=== PATIENT | male | born 1935 | race Caucasian/White ===

== ENCOUNTER 2021-07-07 08:51 | Emergency (ER) | payer MEDICARE, MEDICAID ==
[~2021-07-07] VITALS: Ht 170 cm; Wt 95.0 kg
--- NOTE | 2021-07-07 09:05 | ED General ---
General Stated Complaint: CHEST PAIN Source of Information: Patient Exam Limitations: No Limitations History of Present Illness Date Seen by Provider: Jul 07, 2021 Time Seen by Provider: 08:55 Initial Comments Patient is an 86-year-old insulin-dependent diabetic male with history of hypertension, CAD and CABG who presents with continuous lower abdominal pain and substernal chest pain starting 12 hours prior to ED arrival. Pain is dull aching low-grade. Patient has not had chest pain since his CABG several years ago. He denies back pain. Reports constipation. No abdominal tenderness. Ports nausea denies vomiting fevers chills sweats. Denies dizziness lightheadedness. No shortness of breath or palpitations. No leg pain or swe lling. No other acute symptoms or complaints.. Timing/Duration: 12 Hours Severity: Moderate Modifying Factors: improves with Other Associated Systoms: Other Allergies and Home Medications Allergies Coded Allergies: Penicillins (Verified Allergy, Unknown, 07/07/21) Patient Home Medication List Home Medication List Reviewed: Yes Review of Systems Review of Systems Constitutional: see HPI EENTM: see HPI Respiratory: see HPI Cardiovascular: see HPI Gastrointestinal: see HPI Genitourinary: see HPI Musculoskeletal: see HPI Skin: see HPI Psychiatric/Neurological: See HPI Hematologic/Lymphatic: See HPI Immunological/Allergic: see HPI All Other Systems Reviewed Negative Unless Noted: Yes Past Lxhyynu-Bqpzmv-Pqnrzm Hx Patient Social History Tobacco Use?: Yes Physical Exam Vital Signs Vital Signs - First Documented 07/07/21 09:11 Temp 36.0 Pulse 107 Resp 18 B/P (MAP) 160/106 (124) Pulse Ox 99 Capillary Refill : Height, Weight, BMI Height: '" Weight: lbs. oz. kg; BMI Method: General Appearance: No Apparent Distress, WD/WN, Anxious Eyes: Bilateral Eye Normal Inspection, Bilateral Eye PERRL, Bilateral Eye EOMI HEENT: PERRL/EOMI, Pharynx Normal, Moist Mucous Membranes Neck: Full Range of Motion, Non Tender Respiratory: Lungs Clear Cardiovascular: Regular Rate, Rhythm, No Murmur, Normal Peripheral Pulses Gastrointestinal: Soft Back: Normal Inspection, No CVA Tenderness Neurologic/Psychiatric: Alert, Oriented x3 Focused Exam Sepsis Stage: Ruled Out Progress/Results/Core Measures Suspected Sepsis SIRS Temperature: Pulse: Respiratory Rate: Laboratory Tests 07/07/21 09:00: White Blood Count 10.0 Blood Pressure / Mean: Laboratory Tests 07/07/21 09:00: Creatinine 0.87, Platelet Count 219, Total Bilirubin 0.7 Results/Orders Lab Results Laboratory Tests Test 07/07/21 09:00 07/07/21 11:15 Range/Units White Blood Count 10.0 4.3-11.0 10^3/uL Red Blood Count 5.15 4.30-5.52 10^6/uL Hemoglobin 16.3 13.3-17.7 g/dL Hematocrit 47 40-54 % Mean Corpuscular Volume 91 80-99 fL Mean Corpuscular Hemoglobin 32 25-34 pg Mean Corpuscular Hemoglobin Concent 35 32-36 g/dL Red Cell Distribution Width 13.1 10.0-14.5 % Platelet Count 219 130-400 10^3/uL Mean Platelet Volume 9.8 9.0-12.2 fL Immature Granulocyte % (Auto) 0 % Neutrophils (%) (Auto) 56 42-75 % Lymphocytes (%) (Auto) 37 12-44 % Monocytes (%) (Auto) 5 0-12 % Eosinophils (%) (Auto) 1 0-10 % Basophils (%) (Auto) 0 0-10 % Neutrophils # (Auto) 5.6 1.8-7.8 10^3/uL Lymphocytes # (Auto) 3.7 1.0-4.0 10^3/uL Monocytes # (Auto) 0.5 0.0-1.0 10^3/uL Eosinophils # (Auto) 0.1 0.0-0.3 10^3/uL Basophils # (Auto) 0.0 0.0-0.1 10^3/uL Immature Granulocyte # (Auto) 0.0 0.0-0.1 10^3/uL D-Dimer 0.69 H 0.00-0.49 UG/ML Sodium Level 140 135-145 MMOL/L Potassium Level 4.0 3.6-5.0 MMOL/L Chloride Level 99 98-107 MMOL/L Carbon Dioxide Level 25 21-32 MMOL/L Anion Gap 16 H 5-14 MMOL/L Blood Urea Nitrogen 13 7-18 MG/DL Creatinine 0.87 0.60-1.30 MG/DL Estimat Glomerular Filtration Rate 84 BUN/Creatinine Ratio 15 Glucose Level 193 H 70-105 MG/DL Calcium Level 9.6 8.5-10.1 MG/DL Corrected Calcium 9.6 8.5-10.1 MG/DL Total Bilirubin 0.7 0.1-1.0 MG/DL Aspartate Amino Transf (AST/SGOT) 19 5-34 U/L Alanine Aminotransferase (ALT/SGPT) 16 0-55 U/L Alkaline Phosphatase 137 H 40-136 U/L Troponin I < 0.30 <0.30 NG/ML Total Protein 7.6 6.4-8.2 GM/DL Albumin 4.0 3.2-4.5 GM/DL My Orders Orders - KRYSTIAN ADHIKARI DO Cbc With Automated Diff (07/07/21 09:00) Comprehensive Metabolic Panel (07/07/21 09:00) Troponin I Fs (07/07/21 09:00) Fibrin Degradation Products (07/07/21 09:00) Chest 1 View Ap/Pa Only (07/07/21 09:00) Ekg Tracing (07/07/21 09:00) Nitroglycerin 0.4 Mg Btl 25's (Nitrostat (07/07/21 09:15) Aspirin Chewable Tablet (Baby Aspirin Ch (07/07/21 09:15) Ct Angio Chest/Abd/Pelv W (07/07/21 09:49) Ondansetron Injection (Zofran Injectio (07/07/21 10:00) Iohexol Injection (Omnipaque 350 Mg/Ml 1 (07/07/21 10:15) Received Contrast (Hold Metformin- Contr (07/07/21 10:15) Ns (Ivpb) (Sodium Chloride 0.9% Ivpb Bag (07/07/21 10:15) Troponin I Fs (07/07/21 11:06) Medications Given in ED Current Medications Medications Dose Ordered Sig/Annalise Route Start Time Stop Time Status Last Admin Dose Admin Aspirin 324 mg ONCE ONCE PO 07/07/21 09:15 07/07/21 09:16 DC 07/07/21 09:14 324 MG Iohexol 150 ml ONCE ONCE IV 07/07/21 10:15 07/07/21 10:16 DC 07/07/21 10:23 125 ML Nitroglycerin 1 TAB Q 5 MIN X 3 NEEDED PRN SL 07/07/21 09:15 07/07/21 09:14 0.4 MG Ondansetron HCl 4 mg ONCE ONCE IVP 07/07/21 10:00 07/07/21 10:01 DC 07/07/21 10:01 4 MG Sodium Chloride 100 ml ONCE ONCE IV 07/07/21 10:15 07/07/21 10:16 DC 07/07/21 10:23 100 ML Vital Signs/I&O 07/07/21 09:11 Temp 36.0 Pulse 107 Resp 18 B/P (MAP) 160/106 (124) Pulse Ox 99 Capillary Refill : Departure Communication (Admissions) Chest x-ray: No acute cardiopulmonary disease. CTA chest abdomen pelvis: Findings constipation, no acute intravascular disease EKG: Sinus tach, rate 110, nonspecific ST-T wave changes. Patient hypertensive with lower abdominal pain without tenderness and substernal chest pain. Both chest and abdominal pain resolved with treatment of nitroglycerin and blood pressure. Blood pressure normalized. No acute ST changes are noted on EKG. Despite 12 hours of chest pain troponin remains negative in the emergency department. CT scan negative for aortic dissection or aneurysm and suggestive of constipation. Recommendations are for discharge home with supportive care watchful waiting and PCP follow-up. Return precautions reviewed. Patient verbalizes understanding agreement discharge instructions prior to departure. Impression Primary Impression: Chest pain Additional Impression: Abdominal pain Disposition: 01 HOME, SELF-CARE Condition: Stable Departure-Patient Inst. Decision time for Depature: 11:30 Referrals: REYNALDO LEO MD (PCP) Primary Care Physician Patient Instructions: Chest Pain, Abdominal Pain, Adult ED Add. Discharge Instructions: You were evaluated in the emergency department for chest pain and abdominal pain. Lab EKG and imaging were performed. The exact cause of your symptoms has not been determined but constipation may be contributing to your abdominal pain. Please take all daily medications upon returning home this morning. Increase daily fluid and fiber intake Colace for treating constipation. Follow-up with your PCP in 3 to 5 days for reevaluation. Return to the emergency department if new or worsening symptoms. Scripts Docusate Sodium (Colace) 100 Mg Capsule 100 MG PO BID, #14 CAP Prov: KRYSTIAN ADHIKARI DO 07/07/21 KRYSTIAN ADHIKARI DO Jul 07, 2021 09:05
--- NOTE | 2021-07-07 09:14 | Diagnostic Imaging Report ---
INDICATION: Chest pain. TECHNIQUE: Single view chest at 9:03 AM. CORRELATION STUDY: None FINDINGS: Post sternotomy change. Heart size appears to be enlarged. The vasculature overall is within normal limits. Elevated right diaphragm. Right lung volume loss. Definitive infiltrate, effusion, or pneumothorax, however, is not suggested. IMPRESSION: Rather pronounced elevated right diaphragm with right lung volume loss. Post sternotomy change. Negative for acute cardiopulmonary abnormality. Dictated by: Dictated on workstation # [id number]
[2021-07-07] MEDS ORDERED: ASPIRIN 81 MG CHEW (CHILDREN'S ASA) PO ONE (09:15)
[2021-07-07] MEDS ORDERED: NITROGLYCERIN 0.4 MG SL TABS BTL 25'S SL PRN (09:15)
[2021-07-07 09:17] LABS: BASOPHILS % (AUTO) 0 % (0-10); EOSINOPHILS # (AUTO) 0.1 10^3/uL (0.0-0.3); EOSINOPHILS % (AUTO) 1 % (0-10); HEMATOCRIT 47 % (40-54); HEMOGLOBIN 16.3 g/dL (13.3-17.7); LYMPHOCYTES # (AUTO) 3.7 10^3/uL (1.0-4.0); LYMPHOCYTES % (AUTO) 37 % (12-44); MEAN CORPUSCULAR HEMOGLOBIN 32 pg (25-34); MEAN CORPUSCULAR HGB CONC 35 g/dL (32-36); MEAN CORPUSCULAR VOLUME 91 fL (80-99); MEAN PLATELET VOLUME 9.8 fL (9.0-12.2); MONOCYTES # (AUTO) 0.5 10^3/uL (0.0-1.0); MONOCYTES % (AUTO) 5 % (0-12); NEUTROPHILS # (AUTO) 5.6 10^3/uL (1.8-7.8); NEUTROPHILS % (AUTO) 56 % (42-75); PLATELET COUNT 219 10^3/uL (130-400)
[2021-07-07 09:34] LABS: ALANINE AMINOTRANSFERASE 16 U/L (0-55); ALKALINE PHOSPHATASE 137 U/L (40-136); BILIRUBIN,TOTAL 0.7 MG/DL (0.1-1.0); BUN/CREATININE RATIO 15; CALCIUM 9.6 MG/DL (8.5-10.1); CARBON DIOXIDE 25 MMOL/L (21-32); CHLORIDE 99 MMOL/L (98-107); CREATININE SERUM 0.87 MG/DL (0.60-1.30); GFR ESTIMATED 84; GLUCOSE 193 MG/DL (70-105); SODIUM 140 MMOL/L (135-145); TOTAL PROTEIN 7.6 GM/DL (6.4-8.2)
[2021-07-07] MEDS ORDERED: ONDANSETRON 4 MG/2 ML (SDV) Z0FRAN IVP ONE (10:00)
[2021-07-07] MEDS ORDERED: IOHEXOL 350 MG/ML 150 ML (OMNIPAQUE 350) VIAL IV ONE (10:15)
[2021-07-07] MEDS ORDERED: HOLD METFORMIN - RECEIVED CONTRAST 20 ML VIAL IV SCH (10:15)
[2021-07-07] MEDS ORDERED: NS 100 ML (IVPB) BAG IV ONE (10:15)
--- NOTE | 2021-07-07 10:43 | Diagnostic Imaging Report ---
PROCEDURE: CT angiography of the chest with contrast and CT abdomen and pelvis with contrast. TECHNIQUE: Multiple contiguous axial images were obtained through the chest, abdomen and pelvis after administration of intravenous contrast. 3D MIP reconstructed CT angiography acquisitions of the aorta were then performed. Auto Exposure Controls were utilized during the CT exam to meet ALARA standards for radiation dose reduction. INDICATION: Hypertension and chest pain. COMPARISON: No prior studies are available for comparison. FINDINGS: CT ANGIOGRAM CHEST: The thoracic aorta has a normal caliber. No dissection is identified. The visualized pulmonary arteries are without evidence of thromboembolism. There are changes of median sternotomy. Right hemidiaphragm is elevated. There is no pericardial or pleural fluid identified. Subpleural interstitial scarring is identified throughout both lungs. There is some atelectasis in the dependent portion of the right lower lobe posteriorly. No mass is identified. IMPRESSION: No evidence of aortic dissection, aneurysm or pulmonary embolism. No acute feature in the chest is identified. CT ABDOMEN AND PELVIS: The abdominal aorta shows some atherosclerotic changes but is normal in caliber. No dissection is identified. Liver is unremarkable. There is a large stone within the gallbladder. No biliary ductal dilatation is seen. The pancreas and spleen are unremarkable. No adrenal mass is identified. Kidneys are unremarkable. Small and large bowel loops are normal in caliber. There is no obstruction. There is moderate stool in the right colon and transverse colon. No free fluid or fluid collection is identified. No inflammatory changes in the abdomen or pelvis are identified. Bladder is decompressed. There is a fat-containing right inguinal hernia. Old healed fractures of bilateral inferior pubic rami as well as right superior pubic ramus are noted. IMPRESSION: 1. Cholelithiasis. 2. Fat-containing right inguinal hernia. 3. Moderate stool in the colon, suggestive of constipation. Dictated by: Dictated on workstation # [id number]
[2021-07-07] MEDS ORDERED: DOCU-143 PO (11:32)
[2021-07-07 11:48] VITALS: BP 119/80
== END 2021-07-07 11:49 | disposition home or self-care (01) ==
LOC: EDUNIT# 08:51 → ER FS 08:53
DX: R07.89 Other chest pain (principal); R10.30 Lower abdominal pain, unspecified; E11.9 Type 2 diabetes mellitus without complications; Z72.0 Tobacco use
CPT/HCPCS: 36415; 71045; 71275; 74174; 80053; 84484; 85025; 85379; 93005; Q9967

== ENCOUNTER → 2021-07-28 | Outpatient (CLI) | payer MEDICARE, MEDICAID ==
[~2021-07-28] MED LIST: DOCU-143 PO
--- NOTE | 2021-07-28 10:54 | Diagnostic Imaging Report ---
CLINICAL INDICATION: Patient with crackles heard at base of right lung. EXAM: Chest x-ray, PA and lateral views. COMPARISON: Chest x-ray dated 07/07/2021. FINDINGS: Elevation of the right hemidiaphragm is again seen. Again noted are reticular nodular opacities and increased lung markings throughout the right lung and right lung base. These findings appear to have minimally progressed. There is also slight progression of increased lung markings involving the left lung base. There is no pleural effusion or pneumothorax. The pulmonary vasculature and cardiac silhouette are within normal limits. There are postop changes to the chest, consistent with CABG. There are degenerative spurs involving the thoracic spine. Interposition of colon is again seen involving the right upper quadrant region. IMPRESSION: 1: There is slight increase in the reticulonodular changes throughout both lungs with both lung bases affected the most. These findings may represent interstitial infiltrates. Background chronic lung changes may also be present. 2: Stable elevation of the right hemidiaphragm. Dictated by: Dictated on workstation # [id number]
== END ==
LOC: RAD FS 10:26
PROVIDERS: ATTEND Family Medicine
DX: R09.89 Other specified symptoms and signs involving the circulatory and respiratory systems (principal)
CPT/HCPCS: 71046

== ENCOUNTER → 2021-08-04 | Outpatient (CLI) | payer MEDICARE, MEDICAID ==
--- NOTE | 2021-08-04 12:01 | Diagnostic Imaging Report ---
INDICATION: Respiratory crackles. PA and lateral views of the chest are obtained with comparison made to study of 07/28/2021. FINDINGS: Similar to the previous study, there is elevation of the right hemidiaphragm. Gaseous distention of bowel is seen beneath the right diaphragm. Prominent interstitial markings are stable without pneumothorax or new infiltrate detected. There is no significant pleural fluid. Surgical findings in the mediastinum are unchanged. IMPRESSION: Stable elevation of the right hemidiaphragm with background interstitial lung disease, similar to previous study. Dictated by: Dictated on workstation # [id number]
== END ==
LOC: RAD FS 11:25
PROVIDERS: ATTEND Family Medicine
DX: J84.9 Interstitial pulmonary disease, unspecified (principal)
CPT/HCPCS: 71046

== ENCOUNTER 2021-11-29 16:33 | Emergency (ER) | payer MEDICARE, MEDICAID ==
[~2021-11-29] VITALS: Ht 172 cm; Wt 87.0 kg
[2021-11-29] MEDS ORDERED: ONDANSETRON 4 MG/2 ML (SDV) Z0FRAN ONE (17:08)
[2021-11-29] MEDS ORDERED: DEXTROSE 50% 50 ML (IMS) SYR IV ONE (17:15)
[2021-11-29 17:35] LABS: BASOPHILS % (AUTO) 0 % (0-10); EOSINOPHILS % (AUTO) 0 % (0-10); HEMATOCRIT 45 % (40-54); HEMOGLOBIN 15.5 g/dL (13.3-17.7); LYMPHOCYTES # (AUTO) 1.9 10^3/uL (1.0-4.0); LYMPHOCYTES % (AUTO) 23 % (12-44); MEAN CORPUSCULAR HEMOGLOBIN 31 pg (25-34); MEAN CORPUSCULAR HGB CONC 35 g/dL (32-36); MEAN CORPUSCULAR VOLUME 90 fL (80-99); MEAN PLATELET VOLUME 9.3 fL (9.0-12.2); MONOCYTES # (AUTO) 0.7 10^3/uL (0.0-1.0); MONOCYTES % (AUTO) 8 % (0-12); NEUTROPHILS # (AUTO) 5.7 10^3/uL (1.8-7.8); NEUTROPHILS % (AUTO) 68 % (42-75); PLATELET COUNT 343 10^3/uL (130-400); WHITE BLOOD COUNT 8.3 10^3/uL (4.3-11.0)
[2021-11-29 17:40] LABS: INR 1.1 (0.8-1.4); PROTHROMBIN TIME PATIENT 14.5 SEC (12.2-14.7)
[2021-11-29 17:42] LABS: ALBUMIN 3.4 GM/DL (3.2-4.5); POTASSIUM 3.2 MMOL/L (3.6-5.0)
[2021-11-29 17:44] LABS: CALCIUM 9.5 MG/DL (8.5-10.1)
[2021-11-29 17:45] LABS: TOTAL PROTEIN 7.3 GM/DL (6.4-8.2)
[2021-11-29 17:47] LABS: BILIRUBIN,TOTAL 0.7 MG/DL (0.1-1.0)
[2021-11-29 17:49] LABS: CREATININE SERUM 1.16 MG/DL (0.60-1.30)
[2021-11-29 17:51] LABS: MAGNESIUM 1.8 MG/DL (1.6-2.4)
--- NOTE | 2021-11-29 17:59 | Diagnostic Imaging Report ---
INDICATION: Chest pain COMPARED: 08/04/2021 FINDINGS: Elevated right diaphragm, a chronic finding. Sternal wires midline. No focal consolidation. IMPRESSION: Stable elevation of the right diaphragm. No acute-appearing radiographic abnormality. Dictated by: Dictated on workstation # [id number]
[2021-11-29] MEDS ORDERED: LACTATED RINGERS 1,000 ML IV ONE (18:45)
--- NOTE | 2021-11-29 19:20 | Diagnostic Imaging Report ---
PROCEDURE: CT abdomen and pelvis without contrast. TECHNIQUE: Multiple contiguous axial images were obtained through the abdomen and pelvis without the use of intravenous contrast. Auto Exposure Controls were utilized during the CT exam to meet ALARA standards for radiation dose reduction. INDICATION: Abdominal pain, vomiting, diarrhea. COMPARISON: Exam is compared with CT angiogram abdomen and pelvis 07/07/2021. FINDINGS: Elevation of the right diaphragm and/or its herniation is unchanged from prior studies. Some chronic scarring in the lung bases and trace atelectasis. No acute lower thoracic pathology. Stomach is fluid containing and diffusely distended. The gallbladder is thick-walled with intraluminal air. There was a large laminated gallstone present on the prior. This has apparently fistulized into the proximal duodenum and suspicious for resulting in gastric outlet obstruction. There is also presumed to account for the air within the gallbladder's lumen itself. The stone measures axial dimension 3.7 cm with a longitudinal length of 5.3 cm. Pancreas is nonfocal and nonacute I cannot clearly identify the patient's common bile duct owing to regional inflammatory distortion. There is no free intraperitoneal air. Small and large bowel are unobstructed and nonacute. The appendix is normal. There is no ascites, abscess, hematoma, or acute fluid collection. The adrenals and spleen are negative. There are nonaneurysmal aortoiliac vascular calcifications. There are chronic old deformities to the superior and inferior pubic rami. No acute pelvic soft tissue or bony pathology. IMPRESSION: 1. 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 No biliary ductal dilatation. 2. Chronic right diaphragmatic eventration or herniation with subjacent basilar atelectasis, unchanged from priors. Remaining small and large bowel are all normal. Normal appendix. Unobstructed nonacute urinary tracts. Chronic pelvic bony deformities. Dictated by: Dictated on workstation # [id number]
--- NOTE | 2021-11-29 20:16 | ED Abdominal Pain ---
General Chief Complaint: Abdominal/GI Problems Stated Complaint: VOMITING/POSS BLEEDING IN STOMACH Nursing Triage Note: PT TO RM 2 PT SENT FROM [facility]. PT HAS BEEN VOMITING FOR APPROX 3 WEEKS, STATES CANT KEEP ANYTHING DOWN. PT DENIES DIARRHEA. PT RATES PAIN / Source of Information: Patient Exam Limitations: No Limitations History of Present Illness Date Seen by Provider: Nov 29, 2021 Time Seen by Provider: 17:10 Initial Comments This 86-year-old gentleman presents to the emergency room as directed by the [facility] in [place] for reasons of abdominal pain and vomiting for more than 2 weeks. Pain is in the lower abdomen in the epigastrium and radiating into the chest. Some of his emesis has been described as coffee-ground in appearance. He reports the nausea and vomiting started before the pain. He denies any diarrhea. He has not had a bowel movement in several days. Patient is diabetic and has not been able to eat or drink adequately. Fingerstick blood sugar is 59. Allergies and Home Medications Allergies Coded Allergies: Penicillins (Verified Allergy, Unknown, 07/07/21) Patient Home Medication List Home Medication List Reviewed: Yes Docusate Sodium (Colace) 100 Mg Capsule, 100 MG PO BID Prescribed by: KRYSTIAN ADHIKARI on 07/07/21 1132 Review of Systems Review of Systems Constitutional: no symptoms reported EENTM: No Symptoms Reported Respiratory: See HPI Cardiovascular: See HPI Gastrointestinal: See HPI Genitourinary: No Symptoms Reported Musculoskeletal: no symptoms reported Skin: no symptoms reported Psychiatric/Neurological: No Symptoms Reported Endocrine: See HPI Hematologic/Lymphatic: No Symptoms Reported Past Rseberh-Rmgeua-Ewrvwg Hx Patient Social History Tobacco Use?: No Substance use?: No Alcohol Use?: No Pt feels they are or have been: No Past Medical History Surgery/Hospitalization HX: SEE ATTATCHED SHEETS FROM [facility] Surgeries: Yes Abdominal (Colonoscopy), CABG, Coronary Stent Respiratory: No Cardiac: Yes Coronary Artery Disease, High Cholesterol, Hypertension Neurological: Yes (Foot drop, poliomyelitis) Reproductive Disorders: No Genitourinary: Yes Renal Failure (Chronic kidney disease) Gastrointestinal: No Musculoskeletal: No Endocrine: Yes Diabetes, Insulin dep (Type II), Hypothyroidsim HEENT: No Cancer: No Psychosocial: No Physical Exam Vital Signs Vital Signs - First Documented 11/29/21 11/30/21 16:55 02:28 Temp 36.7 Pulse 95 Resp 16 B/P (MAP) 126/88 (101) Pulse Ox 97 O2 Delivery Nasal Cannula O2 Flow Rate 2.00 Capillary Refill : Less Than 3 Seconds Height/Weight/BMI Height: '" Weight: lbs. oz. kg; 29.00 BMI Method: General Appearance: WD/WN, no apparent distress HEENT: PERRL/EOMI, normal ENT inspection, other (Oropharynx somewhat dry) Neck: normal inspection Respiratory: lungs clear, normal breath sounds, no respiratory distress Cardiovascular: regular rate, rhythm, no edema, no murmur Gastrointestinal: normal bowel sounds, soft; No distended; tenderness (Across the lower abdomen and epigastrium) Extremities: normal inspection, no pedal edema Neurologic/Psychiatric: alert, normal mood/affect, oriented x 3 Skin: normal color, warm/dry Progress/Results/Core Measures Results/Orders Lab Results Laboratory Tests Test 11/29/21 17:11 11/29/21 17:12 11/29/21 18:16 11/29/21 22:47 Range/Units White Blood Count 8.3 4.3-11.0 10^3/uL Red Blood Count 5.01 4.30-5.52 10^6/uL Hemoglobin 15.5 13.3-17.7 g/dL Hematocrit 45 40-54 % Mean Corpuscular Volume 90 80-99 fL Mean Corpuscular Hemoglobin 31 25-34 pg Mean Corpuscular Hemoglobin Concent 35 32-36 g/dL Red Cell Distribution Width 13.2 10.0-14.5 % Platelet Count 343 130-400 10^3/uL Mean Platelet Volume 9.3 9.0-12.2 fL Immature Granulocyte % (Auto) 0 % Neutrophils (%) (Auto) 68 42-75 % Lymphocytes (%) (Auto) 23 12-44 % Monocytes (%) (Auto) 8 0-12 % Eosinophils (%) (Auto) 0 0-10 % Basophils (%) (Auto) 0 0-10 % Neutrophils # (Auto) 5.7 1.8-7.8 10^3/uL Lymphocytes # (Auto) 1.9 1.0-4.0 10^3/uL Monocytes # (Auto) 0.7 0.0-1.0 10^3/uL Eosinophils # (Auto) 0.0 0.0-0.3 10^3/uL Basophils # (Auto) 0.0 0.0-0.1 10^3/uL Immature Granulocyte # (Auto) 0.0 0.0-0.1 10^3/uL Prothrombin Time 14.5 12.2-14.7 SEC INR Comment 1.1 0.8-1.4 Activated Partial Thromboplast Time 38 H 24-35 SEC Sodium Level 144 135-145 MMOL/L Potassium Level 3.2 L 3.6-5.0 MMOL/L Chloride Level 96 L 98-107 MMOL/L Carbon Dioxide Level 30 21-32 MMOL/L Anion Gap 18 H 5-14 MMOL/L Blood Urea Nitrogen 23 H 7-18 MG/DL Creatinine 1.16 0.60-1.30 MG/DL Estimat Glomerular Filtration Rate 61 BUN/Creatinine Ratio 20 Glucose Level 61 L 70-105 MG/DL Calcium Level 9.5 8.5-10.1 MG/DL Corrected Calcium 10.0 8.5-10.1 MG/DL Magnesium Level 1.8 1.6-2.4 MG/DL Total Bilirubin 0.7 0.1-1.0 MG/DL Aspartate Amino Transf (AST/SGOT) 38 H 5-34 U/L Alanine Aminotransferase (ALT/SGPT) 28 0-55 U/L Alkaline Phosphatase 90 40-136 U/L Myoglobin 344.9 H 10.0-92.0 NG/ML Troponin I < 0.028 <0.028 NG/ML C-Reactive Protein High Sensitivity 9.85 H 0.00-0.50 MG/DL Total Protein 7.3 6.4-8.2 GM/DL Albumin 3.4 3.2-4.5 GM/DL Lipase 13 8-78 U/L Thyroid Stimulating Hormone (TSH) 3.54 0.35-4.94 UIU/ML Glucometer 59 *L 143 H 70-110 MG/DL Urine Color YELLOW Urine Clarity CLEAR Urine pH 7.5 5-9 Urine Specific [place] 1.015 L 1.016-1.022 Urine Protein 2+ H NEGATIVE Urine Glucose (UA) TRACE H NEGATIVE Urine Ketones 2+ H NEGATIVE Urine Nitrite NEGATIVE NEGATIVE Urine Bilirubin 2+ H NEGATIVE Urine Urobilinogen 4.0 < = 1.0 MG/DL Urine Leukocyte Esterase NEGATIVE NEGATIVE Urine RBC (Auto) NEGATIVE NEGATIVE Urine RBC NONE /HPF Urine WBC 0-2 /HPF Urine Squamous Epithelial Cells 0-2 /HPF Urine Renal Epithelial Cells NONE /HPF Urine Crystals NONE /LPF Urine Bacteria TRACE /HPF Urine Casts NONE /LPF Urine Mucus SMALL H /LPF Urine Culture Indicated NO Test 11/30/21 00:09 11/30/21 02:03 Range/Units Glucometer 103 70-110 MG/DL Gastric Fluid Occult Blood POSITIVE H NEGATIVE My Orders Orders - ADRIANE MALDONADO MD Ondansetron Injection (Zofran Injectio (11/29/21 17:08) Cbc With Automated Diff (11/29/21 17:12) Comprehensive Metabolic Panel (11/29/21 17:12) Hs C Reactive Protein (11/29/21 17:12) Lipase (11/29/21 17:12) Magnesium (11/29/21 17:12) Ua Culture If Indicated (11/29/21 17:12) Ed Iv/Invasive Line Start (11/29/21 17:12) D50w (Emergency) Syringe (Dextrose 50% 5 (11/29/21 17:15) Thyroid Stimulating Hormone (11/29/21 17:15) Chest 1 View, Ap/Pa Only (11/29/21 17:24) Ekg Tracing (11/29/21 17:24) Myoglobin Serum (11/29/21 17:24) Protime With Inr (11/29/21 17:24) Partial Thromboplastin Time (11/29/21 17:24) Monitor-Rhythm Ecg Trace Only (11/29/21 17:24) Troponin I Kat (11/29/21 17:24) Lactated Ringers (Lr 1000 Ml Iv Solution (11/29/21 18:45) Ct Abdomen/Pelvis Wo (11/29/21 18:36) Promethazine Injection (Phenergan Injec (11/29/21 20:30) Ondansetron Injection (Zofran Injectio (11/29/21 23:15) Scopolamine Patch (Transderm-Scop Patch) (11/29/21 23:15) Potassium Cl 10meq/50ml Ivpb (Kcl 10 Meq (11/30/21 00:00) Ns Iv 500 Ml (Sodium Chloride 0.9%) (11/30/21 00:00) Accucheck Stat ONCE (11/29/21 23:58) Occult Blood,Gastric Fluid (11/30/21 01:58) Ng Tube Insert & Assessment (11/30/21 01:58) Chest 1 View, Ap/Pa Only (11/30/21 01:58) Pantoprazole Injection (Protonix Injecti (11/30/21 02:30) Medications Given in ED Vital Signs/I&O 11/29/21 11/30/21 16:55 02:28 Temp 36.7 Pulse 95 87 Resp 16 20 B/P (MAP) 126/88 (101) 142/96 Pulse Ox 97 97 O2 Delivery Nasal Cannula O2 Flow Rate 2.00 Blood Pressure Mean: 101 FSBG Bedside Testing Finger Stick Blood Glucose: 143 Blood Glucose Action Taken: RN NOTIFIED Progress Progress Note #1: Time: 22:34 Progress Note Patient was treated with Zofran for nausea and an amp of D50 for hypoglycemia. He reported receiving a liter of IV fluid at the [facility] clinic. Labs were remarkable for hypoglycemia, hypokalemia, and elevated CRP. 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 This was discussed with Dr. Escalante who recommended transfer to higher level of care where there are gastroenterology services capable of placing duodenal stent. He recommended [facility], but they are closed to transfer due to bed capacity at this time. I have contacted both [facility] and [facility] and am awaiting calls back. Patient had refractory nausea which was treated with Phenergan. This caused drowsiness and hypoxia which was corrected with nasal cannula oxygen. Patient is stable at this time. Progress Note #2: Time: 01:43 Progress Note [facility] and [facility] both declined transfer due to bed capacity. I did speak with Dr. Murguia at [facility] who recommended transferring to a tertiary care [place] setting with hepatobiliary surgeons. I discussed options with the patient who requested transfer to the [facility] where he has family. I contacted the [facility] transfer line and bed availability was found at [facility]. Transfer arrangements were made to the inpatient service of Dr. Brooks. Patient remained stable at this time. A repeat dose of Zofran as well as a scopolamine patch were ordered for further management of the nausea. Patient declined any pain medications. Potassium is being replaced by IV route. Progress Note #3: Time: 02:09 Progress Note Patient is reporting that nothing we have done so far has significantly improved his nausea. He continues to regurgitate very small quantities of emesis up. Emesis is being sent for gastric Hemoccult testing. After again reviewing CT scan, it appears the stomach is significantly dilated. We will place an NG tube prior to transfer to decompress his stomach. He would likely tolerate the long ambulance ride to [place] much better if his stomach is decompressed. EMS crew is now here to transport the patient. Diagnostic Imaging Diagonstic Imaging: CT Plain Films/CT/US/NM/MRI: abdomen, pelvis Comments CT abdomen and pelvis viewed by me and report reviewed. See report below: NAME: JOSEY KEMP MED REC#: [id number] PT STATUS: REG ER : 1935 PHYSICIAN: ADRIANE MALDONADO MD ADMIT DATE: 11/29/21/ER Signed Date of Exam:11/29/21 CT ABDOMEN/PELVIS WO PROCEDURE: CT abdomen and pelvis without contrast. TECHNIQUE: Multiple contiguous axial images were obtained through the abdomen and pelvis without the use of intravenous contrast. Auto Exposure Controls were utilized during the CT exam to meet ALARA standards for radiation dose reduction. INDICATION: Abdominal pain, vomiting, diarrhea. COMPARISON: Exam is compared with CT angiogram abdomen and pelvis 07/07/2021. FINDINGS: Elevation of the right diaphragm and/or its herniation is unchanged from prior studies. Some chronic scarring in the lung bases and trace atelectasis. No acute lower thoracic pathology. Stomach is fluid containing and diffusely distended. The gallbladder is thick-walled with intraluminal air. There was a large laminated gallstone present on the prior. This has apparently fistulized into the proximal duodenum and suspicious for resulting in gastric outlet obstruction. There is also presumed to account for the air within the gallbladder's lumen itself. The stone measures axial dimension 3.7 cm with a longitudinal length of 5.3 cm. Pancreas is nonfocal and nonacute I cannot clearly identify the patient's common bile duct owing to regional inflammatory distortion. There is no free intraperitoneal air. Small and large bowel are unobstructed and nonacute. The appendix is normal. There is no ascites, abscess, hematoma, or acute fluid collection. The adrenals and spleen are negative. There are nonaneurysmal aortoiliac vascular calcifications. There are chronic old deformities to the superior and inferior pubic rami. No acute pelvic soft tissue or bony pathology. IMPRESSION: 1. 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 No biliary ductal dilatation. 2. Chronic right diaphragmatic eventration or herniation with subjacent basilar atelectasis, unchanged from priors. Remaining small and large bowel are all normal. Normal appendix. Unobstructed nonacute urinary tracts. Chronic pelvic bony deformities. Dictated by: Dictated on workstation # [id number] Dict: 11/29/21 190 Trans: 11/29/211942 [id number] Interpreted by: DEXTER BREWSTER Electronically signed by: DEXTER RBEWSTER 11/29/211942 Diagonstic Imaging: Xray Plain Films/CT/US/NM/MRI: chest Comments NAME: JOSEY KEMP MED REC#: [id number] PT STATUS: REG ER : 1935 PHYSICIAN: ADRIANE MALDONADO MD ADMIT DATE: 11/29/21/ER Signed Date of Exam:11/29/21 CHEST 1 VIEW, AP/PA ONLY INDICATION: Chest pain COMPARED: 08/04/2021 FINDINGS: Elevated right diaphragm, a chronic finding. Sternal wires midline. No focal consolidation. IMPRESSION: Stable elevation of the right diaphragm. No acute-appearing radiographic abnormality. Dictated by: Dictated on workstation # [id number] Dict: 11/29/21 175 Trans: 11/29/211801 [facility] [id number] Interpreted by: DEXTER BREWSTER Electronically signed by: DEXTER BREWSTER 11/29/211801 Departure Impression Primary Impression: Bouveret's Syndrome Additional Impressions: Hypoglycemia Hypokalemia Nausea and vomiting Qualified Codes: R11.2 - Nausea with vomiting, unspecified Disposition: XF [facility] Condition: Stable Transfer Transfer Reason: Exceeds level of care Time Spoke to Accepting Phy: 00:18 Transfer Progress Notes Transfer was accepted to the service of Dr. Brooks at [facility] [place]. Transfer was discussed with midlevel provider Sharlene. Transfer Time: 02:10 Transfer Facility: [place], [place] Method of Transfer: EMS Departure-Patient Inst. Referrals: REYNALDO LEO MD (PCP/Family) Primary Care Physician Copy Copies To 1: REYNALDO LEO MD, JOSHUA T MD Nov 29, 2021 20:16
[2021-11-29] MEDS ORDERED: PROMETHAZINE INJ 25 MG/ML (PHENERGAN) AMP IVP ONE (20:30)
[2021-11-29 22:55] LABS: CLARITY,URINE CLEAR; COLOR,URINE YELLOW; GLUCOSE, URINE (UA) TRACE (NEGATIVE); KETONES,URINE 2+ (NEGATIVE); LEUKOCYTE ESTERASE ,URINE NEGATIVE (NEGATIVE); NITRITE,URINE NEGATIVE (NEGATIVE); PH,URINE 7.5 (5-9); PROTEIN,URINE 2+ (NEGATIVE)
[2021-11-29 23:04] LABS: BACTERIA,URINE TRACE /HPF; SQUAMOUS EPITHELIAL CELL,UR 0-2 /HPF; WBC,URINE 0-2 /HPF
[2021-11-29] MEDS ORDERED: ONDANSETRON 4 MG/2 ML (SDV) Z0FRAN IVP ONE (23:15)
[2021-11-29] MEDS ORDERED: SCOPOLAMINE 1.5 MG (TRANSDERM-SCOP) PATCH TD ONE (23:15)
[2021-11-30] MEDS ORDERED: POTASSIUM CL 10MEQ/50ML IVPB 50 ML IV ONE
[2021-11-30] MEDS ORDERED: NS IV 500 ML 500 ML IV ONE
[2021-11-30 02:16] LABS: OCCULT BLOOD,GASTRIC FLUID POSITIVE (NEGATIVE)
[2021-11-30 02:28] VITALS: BP 142/96
[2021-11-30] MEDS ORDERED: PANTOPRAZOLE 40 MG (PROTONIX) VIAL IV ONE (02:30)
--- NOTE | 2021-11-30 07:40 | Diagnostic Imaging Report ---
EXAMINATION: Chest 1 view HISTORY: NG tube placement. COMPARISON: 11/29/2021. FINDINGS: NG tube has been placed with the tip overlying the gastroesophageal junction. There are persistent low lung volumes. Small amount of patchy opacities are seen in the left lung base. Stable cardiac silhouette with post CABG changes. No large pleural effusion or pneumothorax. IMPRESSION: 1. NG tube has been placed with tip overlying the gastroesophageal junction. 2. Atelectasis in the left lung base with persistent low lung volumes. Dictated by: Dictated on workstation # [id number]
[2021-11-30 08:54] LABS: BILIRUBIN,URINE 2+ (NEGATIVE)
== END 2021-11-30 02:28 | disposition short-term general hospital (02) ==
LOC: EDUNIT# 16:33 → ER 16:35
DX: E11.65 Type 2 diabetes mellitus with hyperglycemia (principal); I47.9 Paroxysmal tachycardia, unspecified; R11.2 Nausea with vomiting, unspecified; E87.6 Hypokalemia; Z79.4 Long term (current) use of insulin
CPT/HCPCS: 36415; 71045; 74176; 80053; 81000; 82271; 82947; 83690; 83735; 83874; 84443; 84484; 85025; 85610; 85730; 86141; 93005; 93041